=== PATIENT | male | born 1930 | race Native Hawaiian/Other Pacific Islander ===

== ENCOUNTER 2017-03-24 10:01 | Outpatient (CLI) | payer OTHER ==
[~2017-03-24 10:01] MED LIST: CLOP75TA2 PO; EQL ASPIRIN325 M1 OR; ICAPS OR; METO100T37 PO; OMEPRAZOLE20 M1 OR; SIMV20TA2 PO
[2017-03-24 11:09] LABS: PLATELET COUNT 222 K/uL (142-355)
[2017-03-24 11:32] LABS: POTASSIUM 4.1 mmol/L (3.6-5.2)
== END 2017-03-24 11:05 | disposition home or self-care (01) ==
LOC: LABW 10:01
PROVIDERS: Internal Medicine Nephrology
DX: I12.9 Hypertensive chronic kidney disease with stage 1 through stage 4 chronic kidney disease, or unspecified chronic kidney disease (principal); N18.3 Chronic kidney disease, stage 3 (moderate)
CPT/HCPCS: 36415; 80053; 85027

== ENCOUNTER 2017-11-27 13:19 | Outpatient (CLI) | payer OTHER ==
[2017-11-27 13:30] LABS: PLATELET COUNT 251 K/uL (142-355)
[2017-11-27 13:41] LABS: POTASSIUM 4.8 mmol/L (3.6-5.2)
== END 2017-11-27 19:55 | disposition home or self-care (01) ==
LOC: LABW 13:19
PROVIDERS: Internal Medicine Nephrology
DX: N18.3 Chronic kidney disease, stage 3 (moderate) (principal)
CPT/HCPCS: 36415; 80053; 82306; 83970; 84100; 85027

== ENCOUNTER 2018-02-26 13:08 | Outpatient (CLI) | payer OTHER ==
[2018-02-26 13:31] LABS: PLATELET COUNT 228 K/uL (142-355)
[2018-02-26 13:53] LABS: POTASSIUM 4.4 mmol/L (3.6-5.2)
== END 2018-02-26 19:50 | disposition home or self-care (01) ==
LOC: LABW 13:08
PROVIDERS: Internal Medicine Nephrology
DX: N18.3 Chronic kidney disease, stage 3 (moderate) (principal); D64.9 Anemia, unspecified
CPT/HCPCS: 36415; 80069; 82570; 83540; 83970; 84155; 85027

== ENCOUNTER 2018-06-04 11:49 | Outpatient (CLI) | payer OTHER ==
[2018-06-04 12:36] LABS: PLATELET COUNT 244 K/uL (142-355)
[2018-06-04 12:57] LABS: POTASSIUM 4.2 mmol/L (3.6-5.2)
== END 2018-06-04 19:45 | disposition home or self-care (01) ==
LOC: LABW 11:49
PROVIDERS: Physician Assistant
DX: I10 Essential (primary) hypertension (principal); R20.8 Other disturbances of skin sensation; G45.9 Transient cerebral ischemic attack, unspecified; Z79.899 Other long term (current) drug therapy; E55.9 Vitamin D deficiency, unspecified
CPT/HCPCS: 36415; 80053; 82306; 83036; 84439; 84443; 85027

== ENCOUNTER 2018-10-08 10:24 | Outpatient (CLI) | payer OTHER ==
[2018-10-08 10:42] LABS: PLATELET COUNT 239 K/uL (142-355)
[2018-10-08 11:14] LABS: POTASSIUM 4.3 mmol/L (3.6-5.2); SODIUM 141 mmol/L (136-145)
== END 2018-10-08 23:32 | disposition home or self-care (01) ==
LOC: LABW 10:24
PROVIDERS: Internal Medicine
DX: I10 Essential (primary) hypertension (principal); Z85.46 Personal history of malignant neoplasm of prostate; Z12.5 Encounter for screening for malignant neoplasm of prostate
CPT/HCPCS: 36415; 80053; 80061; 81000; 84153; 84439; 84443; 85027

== ENCOUNTER 2019-01-28 12:25 | Outpatient (CLI) | payer OTHER ==
[2019-01-28 13:22] LABS: PLATELET COUNT 286 K/uL (142-355)
[2019-01-28 14:13] LABS: POTASSIUM 4.4 mmol/L (3.6-5.2)
== END 2019-01-28 19:49 | disposition home or self-care (01) ==
LOC: LABW 12:25
PROVIDERS: Internal Medicine Nephrology
DX: Z79.899 Other long term (current) drug therapy (principal); E78.49 Other hyperlipidemia; D64.9 Anemia, unspecified
CPT/HCPCS: 36415; 80053; 80061; 82728; 83970; 84100; 84439; 84443; 85027; 85044

== ENCOUNTER 2019-02-11 10:32 | Outpatient (CLI) | payer OTHER | END 2019-02-11 21:56 | disposition home or self-care (01) | LOC: RAD 10:32 | DX: I12.9 Hypertensive chronic kidney disease with stage 1 through stage 4 chronic kidney disease, or unspecified chronic kidney disease (principal); Z79.899 Other long term (current) drug therapy; E78.49 Other hyperlipidemia; N18.3 Chronic kidney disease, stage 3 (moderate); I63.89 Other cerebral infarction; J44.9 Chronic obstructive pulmonary disease, unspecified; K21.9 Gastro-esophageal reflux disease without esophagitis; F03.90 Unspecified dementia, unspecified severity, without behavioral disturbance, psychotic disturbance, mood disturbance, and anxiety; Z85.46 Personal history of malignant neoplasm of prostate ==

== ENCOUNTER 2019-03-30 14:44 | Outpatient (CLI) | payer OTHER ==
[2019-03-30 15:59] LABS: POTASSIUM 4.3 mmol/L (3.6-5.2)
[2019-03-30 16:50] LABS: PLATELET COUNT 290 K/uL (142-355)
== END 2019-03-30 21:31 | disposition home or self-care (01) ==
LOC: CT 14:44
PROVIDERS: Internal Medicine
DX: R41.82 Altered mental status, unspecified (principal); I10 Essential (primary) hypertension
CPT/HCPCS: 36415; 80053; 80061; 81000; 82607; 84439; 84443; 85027

== ENCOUNTER 2019-06-24 14:28 | Outpatient (CLI) | payer OTHER | END 2019-06-24 22:48 | disposition home or self-care (01) | LOC: RESP 14:28 | DX: R00.2 Palpitations (principal); I48.0 Paroxysmal atrial fibrillation | CPT/HCPCS: 93225 ==

== ENCOUNTER 2019-08-23 13:14 | Outpatient (CLI) | payer OTHER | END 2019-08-23 19:09 | disposition home or self-care (01) | LOC: LAB 13:14 | DX: N39.0 Urinary tract infection, site not specified (principal) | CPT/HCPCS: 81000; 87086; 87088 ==

== ENCOUNTER 2019-08-26 12:10 | Outpatient (CLI) | payer OTHER | END 2019-08-26 22:06 | disposition home or self-care (01) | LOC: LAB 12:10 | DX: R30.9 Painful micturition, unspecified (principal) | CPT/HCPCS: 81000; 87077; 87086; 87088; 87185; 87186 ==

== ENCOUNTER 2019-11-23 13:25 | Outpatient (CLI) | payer OTHER | END 2019-11-23 19:46 | disposition home or self-care (01) | LOC: LAB 13:25 | DX: L89.620 Pressure ulcer of left heel, unstageable (principal) | CPT/HCPCS: 87070; 87077; 87185; 87186; 87205 ==